=== PATIENT | female | born 1995 | race Caucasian/White ===

== ENCOUNTER 2020-09-17 16:32 | Emergency (ER) | payer MEDICAID ==
[2020-09-18 02:34] LABS: SARS-CoV-2 PCR by NAA Not Detected (NotDetected)
== END 2020-09-17 17:41 | disposition home or self-care (01) ==
LOC: MADERS 16:32
DX: J06.9 Acute upper respiratory infection, unspecified (principal); Z20.822 Contact with and (suspected) exposure to COVID-19
CPT/HCPCS: 87635; 99283; U0003; U0005

== ENCOUNTER 2021-06-23 14:57 | Emergency (ER) | payer MEDICAID | END 2021-06-23 15:28 | disposition home or self-care (01) | LOC: MADERS 14:57 | DX: H10.9 Unspecified conjunctivitis (principal) | CPT/HCPCS: 99282 ==